=== PATIENT | male | born 1990 | race Caucasian/White ===

== ENCOUNTER 2017-05-16 10:12 | Emergency (ER) | payer SELFPAY ==
[2017-05-16] MEDS ORDERED: BUFFERED LIDOCAINE 10 ML SYRINGE ONE (11:53)
--- NOTE | 2017-05-16 11:53 | ED Physician Documentation ---
PD HPI LOWER EXT INJURY - Stated complaint Stated Complaint: R GREAT TOE PAIN - Chief complaint Chief Complaint: Ext Problem - History obtained from History obtained from: Patient - History of Present Illness PD HPI LOW EXT INJURY LOCATION: Other (2 weeks of painful ingrown toenails of both sides of the right great toenail. No fevers.) Review of Systems Constitutional: denies: Fever, Chills Throat: reports: Reviewed and negative Cardiac: reports: Reviewed and negative PD PAST MEDICAL HISTORY - Past Medical History Cardiovascular: None Respiratory: None Endocrine/Autoimmune: None GI: None : None HEENT: None Psych: None Musculoskeletal: None Derm: None Other Past Medical History: pilonidal cyst - Past Surgical History Past Surgical History: No - Present Medications Home Medications: Ambulatory Orders Medication Instructions Recorded Confirmed Cephalexin [Keflex] 500 mg PO QID #40 capsule 05/16/17 Ibuprofen [Motrin] 800 mg PO Q8H PRN #30 tablet 05/16/17 - Allergies Allergies/Adverse Reactions: Allergies Allergy/AdvReac Type Severity Reaction Status Date / Time No Known Drug Allergies Allergy Verified 01/29/16 15:39 - Social History Does the pt smoke?: No Smoking Status: Never smoker Does the pt drink ETOH?: Yes Does the pt have substance abuse?: No PD ED PE NORMAL - Vitals Vital signs reviewed: Yes - General General: Alert and oriented X 3, No acute distress - Extremities Extremities: Other (Ingrown medial and lateral surfaces of the right great toenail with some purulent drainage and cellulitis.) - Neuro Neuro: Alert and oriented X 3, Normal speech - Psych Psych: Normal mood, Normal affect Results - Vitals Vitals: Vital Signs - 24 hr 05/16/17 10:17 Temperature 36.6 C Heart Rate 89 Respiratory 18 Rate Blood Pressure 128/86 H O2 Saturation 96 Oxygen O2 Source Room air Procedures - General procedure General procedure: After informed consent and a digital block with buffered lidocaine the medial and lateral 1/5 of the toenails were removed using a combination of electrocautery and sharp dissection with success and a bandage was placed. Departure - Departure Disposition: 01 Home, Self Care Clinical Impression: Ingrown nail of great toe of right foot Condition: Good Record reviewed to determine appropriate education?: Yes Instructions: ED Ingrown Toenail Excised Follow-Up: Dorina Dyson DPM [Provider Admit Priv/Credential] - Within 1 week Prescriptions: Cephalexin [Keflex] 500 mg PO QID #40 capsule Ibuprofen [Motrin] 800 mg PO Q8H PRN #30 tablet PRN Reason: PAIN &/OR FEVER Comments: Your blood pressure was elevated today on check into the emergency department. This does not mean that you have hypertension, it is a common phenomenon to come to the emergency department and have elevated blood pressure. I recommend that she see her primary care physician within the week to have it rechecked when you are feeling better. Forms: Activity restrictions
[2017-05-16 12:43] VITALS: BP 111/80
== END 2017-05-16 12:42 | disposition home or self-care (01) ==
LOC: ED 10:12
DX: L60.0 Ingrowing nail (principal); R03.0 Elevated blood-pressure reading, without diagnosis of hypertension
CPT/HCPCS: 11730; 99283